=== PATIENT | female | born 1970 | race Caucasian/White ===

== ENCOUNTER 2024-09-14 12:45 | Outpatient (CLI) | payer SELFPAY ==
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
== END 2024-09-14 12:46 | disposition home or self-care (01) ==
DX: T18.2XXA Foreign body in stomach, initial encounter (principal); W44.8XXA Other foreign body entering into or through a natural orifice, initial encounter
CPT/HCPCS: 71045